=== PATIENT | male | born 1970 | race African-American/Black ===

== ENCOUNTER 2023-01-24 18:54 | Inpatient (IN) | payer OTHER, SELFPAY ==
[2023-01-24] VITALS (26 sets, daily range): BP systolic 133–182; BP diastolic 97–118; PULSE 88–109; RESP 8–31; TEMP 36.6; O2SAT 85–100; BMI 31.5
--- NOTE | 2023-01-24 19:55 | XRR_ITS ---
PROCEDURE INFORMATION: Exam: XR Chest Exam date and time: 01/24/2023 8:19 PM Age: 53 years old Clinical indication: Pain; Chest pressure; Additional info: Cp TECHNIQUE: Imaging protocol: Radiologic exam of the chest. Views: 1 view. COMPARISON: No relevant prior studies available. FINDINGS: Lungs: Unremarkable. No consolidation. Pleural spaces: Unremarkable. No pleural effusion. No pneumothorax. Heart/Mediastinum: Cardiomegaly Bones/joints: Unremarkable. XR/XR chest 1V portable [id number] IMPRESSION: 1. Negative for infiltrate. 2. Cardiomegaly
--- NOTE | 2023-01-24 19:56 | ECG_ITS ---
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 Measurements Intervals [place] Rate: 111 P: 94 MS: 171 QRS: -1 QRSD: 92 T: 169 QT: 326 QTc: 444 Interpretive Statements SINUS TACHYCARDIA POSSIBLE LEFT ATRIAL ENLARGEMENT [-0.1mV P-WAVE IN V1/V2] INCOMPLETE RIGHT BUNDLE BRANCH BLOCK [90+ ms QRS DURATION, TERMINAL R IN V1/V2, 40+ ms S IN I/aVL/V4/V5/V6] POSSIBLE ANTERIOR MYOCARDIAL INFARCTION , OF INDETERMINATE AGE [30 ms Q WAVE IN V3/V4, OR R < 0.2 mV IN V4] MODERATE T-WAVE ABNORMALITY, CONSIDER LATERAL ISCHEMIA [-0.1+ mV T-WAVE IN I/aVL/V5/V6] No previous ECG available for comparison Electronically Signed On 01-24-2023 21:36:05 CDT by Yuridia Walden M.D. [email or web address]
[2023-01-24] MEDS: lidocaine 2% viscous 15 ML, aluminum-mag hydrox-simethicon 30 ML, sucralfate oral liq 1 GM PO (20:05)
[2023-01-24] MEDS: nitroglycerin 0.4 mg sublingual Tablet SUBLINGUAL (20:07)
--- NOTE | 2023-01-24 20:08 | ED_ITS ---
HPI - General Adult General: Chief complaint: Airway/Esophagus Foreign Body Stated complaint: think food is stuck Time Seen by Provider: 01/24/23 19:55 Source: patient Mode of arrival: ambulatory Limitations: no limitations History of Present Illness: 53-year-old male states he is eating chicken a couple hours ago he states he felt like he got a piece stuck states he came sick he drinks Pepsi states like it is passed peacefully he is having esophageal spasms states having severe spasm-like pain in the center of his chest he has felt nauseous rates his pain a 6 out of 10 he is diaphoretic he denies any diarrhea denies any fevers denies any shortness of breath. Associated symptoms: Reports chest pain; Deny dyspnea, headache(s) or rash Review of Systems Const: Denies: fever(s), chills, body aches or change in appetite Eyes: Denies: blurry vision or eye discomfort ENMT: Denies: throat pain or dental pain Card: Reports: chest pain Resp: Denies: dyspnea GI: Reports: abdominal pain and heartburn : Denies: dysuria Musc: Denies: neck pain or back pain Skin/Breast: Denies: rash Neuro: Denies: headache(s) Psych: Denies: depression Rinku/Lymph: Denies: easy bruising All/Imm: Denies: urticaria PFSH ED PFSH: Medical History (Updated 01/24/23 @ 22:04 by Mehrdad Caicedo MD) Hypertension Social History (Updated 01/24/23 @ 20:08 by Mehrdad Caicedo MD) Substance/Drug Use: never Physical Exam Const: COMMON NORMALS: patient oriented x3 HENMT: COMMON NORMALS: normocephalic and atraumatic HEAD & SCALP: normocephalic and atraumatic Eye: COMMON NORMALS: Equal, round and reactive pupils present and EOMs intact bilaterally PUPIL: Yes Equal, round and reactive pupils present Neck/C-Spine: COMMON NORMALS: full ROM and supple Chest: COMMONS NORMALS: normal inspection of the chest and normal palpation of entire chest wall Resp: COMMON NORMALS: normal respiratory effort, No retractions, No use of accessory muscles and clear to auscultation bilaterally AUSCULTATION: clear to auscultation bilaterally Cardio: COMMON NORMALS: regular rate, regular rhythm and No murmurs present (Cardio) RATE: regular rate RHYTHM: regular rhythm GI: COMMON NORMALS: Normal to inspection, nondistended, normoactive bowel sounds present, Soft to palpation, non-tender and no masses PALPATION: Yes Soft to palpation Extremity: COMMON NORMALS: normal to inspection and full ROM Neuro: COMMON NORMALS: patient oriented x3, moves all extremities and no focal motor deficits Psych: COMMON NORMALS: mental status grossly normal, Normal thought process present and cooperative THOUGHT PROCESS: Normal thought process present Skin: COMMON NORMALS: no rashes or lesions noted and no wounds GENERAL SKIN EXAM: no rashes or lesions noted Course Reevaluation(s): Reevaluation #1: Patient's pain here has improved with GI cocktail he still is having some pain I did get a repeat EKG as he was diaphoretic having chest pain he does have some slight elevation in V1 and V2 I have sent his original and repeat EKG to acetylene gas compressor Dr. Beavers I called him and discussed case with him patient could be having esophageal spasms as he does have a story of the food impaction this evening his pain has improved here after nitro and the GI cocktail his initial troponin is normal with these EKG changes plan will reassess in 15 minutes and get another EKG at that time. Time: 20:35 Vital Signs: Vital signs: Vital Signs Temperature 97.8 F 01/24/23 19:01 Pulse Rate 95 01/24/23 21:25 Respiratory Rate 24 H 01/24/23 21:25 Blood Pressure 161/118 01/24/23 21:15 Pulse Oximetry 95 01/24/23 21:25 Oxygen Delivery Me thod 01/24/23 19:01 [facility] - General Adult Medical Decision Making Patient presents here with chest pain also history of an esophageal food impaction but he is able to swallow here without any difficulties he did have some evolving EKG changes on his 3 EKGs continue to have pain I spoke to card iologist who made decision to go ahead and take patient to the Evaporator Repairer for his unstable angina his initial troponin here is normal his pain still could be caused by some esophageal spasms as well. Most concerning would be cardiac with his EKG findings. I also spoke to the hospitalist with plan if patient does have a negative cath to be monitored and is still has symptoms he likely needs either a CAT scan barium study or an EGD Lab Data 01/24/23 20:08 01/24/23 20:08 Radiology Impressions Chest X-Ray 01/24/23 19:55 IMPRESSION: 1. Negative for infiltrate. 2. Cardiomegaly Laboratory Results WBC 14.7 10^3/uL (4.0-10.0) H 01/24/23 20:08 RBC 5.41 10^6/uL (4.1-5.3) H 01/24/23 20:08 Hgb 14.9 g/dL (11.7-16.6) 01/24/23 20:08 Hct 47.8 % (42.0-52.0) 01/24/23 20:08 MCV 88.4 fl (80-94) 01/24/23 20:08 MCH 27.5 pg (28.0-34.0) L 01/24/23 20:08 MCHC 31.2 g/dL (30.0-36.0) 01/24/23 20:08 RDW 12.0 % (12.1-15.1) L 01/24/23 20:08 Plt Count 254 10^3/cmm (130-400) 01/24/23 20:08 MPV 10.1 fL (7.4-10.4) 01/24/23 20:08 Neut % (Auto) 81.7 % 01/24/23 20:08 Lymph % (Auto) 13.1 % 01/24/23 20:08 [place] % (Auto) 4.3 % 01/24/23 20:08 Eos % (Auto) 0.4 % 01/24/23 20:08 Baso % (Auto) 0.3 % 01/24/23 20:08 Neut # (Auto) 12.01 10^3/uL (1.8-7.7) H 01/24/23 20:08 Lymph # (Auto) 1.9 10^3/uL (0.8-4.8) 01/24/23 20:08 [place] # (Auto) 0.6 10^3/uL (0.2-0.9) 01/24/23 20:08 Eos # (Auto) 0.1 10^3/uL (0.0-0.8) 01/24/23 20:08 Baso # (Auto) 0.0 10^3/uL (0.0-0.1) 01/24/23 20:08 Nucleated RBC % (auto) 0 % 01/24/23 20:08 Nucleated RBCs # 0.0 /100WBC 01/24/23 20:08 PT 13.20 SECONDS (12.1-14.9) 01/24/23 20:08 INR 0.97 (0.8-1.2) 01/24/23 20:08 Sodium 137 mmol/L (136-145) 01/24/23 20:08 Potassium 3.4 mmol/L (3.5-5.1) L 01/24/23 20:08 Chloride 100 mmol/L (98-107) 01/24/23 20:08 Carbon Dioxide 22 mmol/L (22-29) 01/24/23 20:08 Anion Gap 18.4 (5-19) 01/24/23 20:08 BUN 15 mg/dL (6-20) 01/24/23 20:08 Creatinine 1.5 mg/dL (0.7-1.2) H 01/24/23 20:08 GFR Calculation 59.7 mL/min (90-130) L 01/24/23 20:08 Glucose 131 mg/dL (65-115) H 01/24/23 20:08 Calculated Osmolality 287 mOsm/kg (285-295) 01/24/23 20:08 Calcium 9.6 mg/dL (8.5-10.5) 01/24/23 20:08 Total Bilirubin 0.5 mg/dL (0.15-1.2) 01/24/23 20:08 AST 25 U/L (0-40) 01/24/23 20:08 ALT 30 U/L (0-41) 01/24/23 20:08 Alkaline Phosphatase 95 U/L (40-130) 01/24/23 20:08 Troponin T Baseline 11 ng/L (0-15) 01/24/23 20:08 Total Protein 7.6 g/dL (6.6-8.7) 01/24/23 20:08 Albumin 4.4 g/dL (3.5-5.2) 01/24/23 20:08 Globulin 3.2 g/dL (1.3-4.6) 01/24/23 20:08 Lipase 25 U/L (13-60) 01/24/23 20:08 Discharge Plan Discharge Patient Disposition: Home Clinical Impression: Unstable angina, Dysphagia Coding Level of Care Code ED 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
[2023-01-24] MEDS: ondansetron 2 mg/ML SDV 2 mL 4 MG IVP (20:10)
[2023-01-24] MEDS: morphine 4 mg/mL SDV 1 mL IVP (20:10)
--- NOTE | 2023-01-24 20:13 | PC.NURSE ---
Pt on continuous bedside cardiac monitoring.
[2023-01-24 20:20] LABS: Basophils % 0.3 %; Eosinophils # 0.1 10^3/uL (0.0-0.8); Eosinophils % 0.4 %; Hematocrit 47.8 % (42.0-52.0); Hemoglobin 14.9 g/dL (11.7-16.6); Lymphocytes # 1.9 10^3/uL (0.8-4.8); Lymphocytes % 13.1 %; Mean Corpuscular HGB Conc 31.2 g/dL (30.0-36.0); Mean Corpuscular Hemoglobin 27.5 pg (28.0-34.0); Mean Corpuscular Volume 88.4 fl (80-94); Mean Platelet Volume 10.1 fL (7.4-10.4); Monocytes # 0.6 10^3/uL (0.2-0.9); Monocytes % 4.3 %; Neutrophils # 12.01 10^3/uL (1.8-7.7); Neutrophils % 81.7 %; Nucleated Red Blood Cells % 0 %; Platelet Count 254 10^3/cmm (130-400); Red Blood Count 5.41 10^6/uL (4.1-5.3); White Blood Count 14.7 10^3/uL (4.0-10.0)
[2023-01-24 20:33] LABS: INR 0.97 (0.8-1.2)
[2023-01-24 20:36] LABS: Troponin(5th) Baseline 11 ng/L (0-15)
[2023-01-24 20:37] LABS: Alanine Aminotransferase 30 U/L (0-41); Albumin Level 4.4 g/dL (3.5-5.2); Alkaline Phosphatase 95 U/L (40-130); Anion Gap 18.4 (5-19); Aspartate Amino Transferase 25 U/L (0-40); Blood Urea Nitrogen 15 mg/dL (6-20); Calcium 9.6 mg/dL (8.5-10.5); Carbon Dioxide 22 mmol/L (22-29); Chloride 100 mmol/L (98-107); Globulin 3.2 g/dL (1.3-4.6); Glomerular Filtration Rate 59.7 mL/min (90-130); Glucose 131 mg/dL (65-115); Lipase 25 U/L (13-60); Osmolality Calculated 287 mOsm/kg (285-295); Potassium 3.4 mmol/L (3.5-5.1); Sodium 137 mmol/L (136-145); Total Bilirubin 0.5 mg/dL (0.15-1.2); Total Protein 7.6 g/dL (6.6-8.7)
--- NOTE | 2023-01-24 20:37 | PC.NURSE ---
Pt appears to be relieved after GI cocktail, but pain resurfaces after swallowing. Dr page.
[2023-01-24] MEDS: aspirin 81 mg Chew Tablet 324 MG PO (20:42)
[2023-01-24] MEDS: HYDROmorphone 1 mg/mL INJ 1 mL IVP (20:54)
[2023-01-24] MEDS: clopidogrel 300 mg Tablet 600 MG PO (21:13)
[2023-01-24] MEDS: heparin 5,000 unit/mL INJ 1 mL 4000 UNIT IVP (21:15)
--- NOTE | 2023-01-24 21:19 | XACV_ITS ---
Exam Room: ED.ROOM15 Ht: 178 cm Wt: 95 kg BSA: 2.19 m2 Gender: Male : 1970 Exam Priority: Routine Procedure(s): Procedure Description: Diagnostic procedure Procedure Description: Left Heart Catheterization Procedure Description: Coronary Angiography Diagnostic Cath Status: Emergency Diagnostic Findings * INDICATION: 53 year old male with past medical history of hypertension has presented to hospital with 2 to 3 hours of severe substernal chest pain. According to patient he noticed chest pain after eating. He felt there may be food impaction. However he was diaphoretic. EKG had dynamic changes in leads V1 and V2 and ST-T wave changes on subsequent EKGs performed in the ER in leads V5 and V6. Given severe substernal chest pain and dynamic EKG changes, decision was made to perform coronary angiogram. * No significant disease noted in the Left Main, Left Anterior Descending, Right, or Circumflex coronary arteries. * Coronary angiography shows right dominance. Conclusions 1. No significant disease noted in the Left Main, Left Anterior Descending, Right, or Circumflex coronary arteries. Recommendations * ACS ruled out as a cause of severe chest pain. Will need further work up for underlying chest pain pathology. Interventional RX Recommendation: medical therapy and/or counseling Diagnostic RX Recommendation: medical therapy and/or counseling Pressures Phase:Rest AO : 178 / 127 ( 145 ) @ 5:10:17 PM 196 / 129 ( 154 ) @ 5:10:17 PM 157 / 118 ( 136 ) @ 5:10:17 PM LV : 196 / 15 / 42 @ 5:10:17 PM 182 / 8 / 35 @ 5:10:17 PM Valves Phase:DefaultPhase AV : 2.0 @ 10:10:17 PM 2.0 @ 10:10:17 PM AV Mean Gradient: 7.0 @ 10:10:17 PM Clinical Evaluation EBL: 5mL-10mL Procedural Details Pre-Procedure Time Out. Identified patient by full name and date of as verbalized by the patient/guarantor. Does the consent match the physician's order: N/A Emergent; Informed Consent not obtained due to time critical life threat. Accurate & Complete Informed Consent: N/A Emergent; Informed Consent not obtained due to time critical life threat. Inpatient/Outpatient History & Physical on Chart: N/A Emergent; Informed Consent not obtained due to time critical life threat. If H&P is completed, is and addenduem needed: N/A Emergent; Informed Consent not obtained due to time critical life threat; If yes, is the addendum complete: N/A Emergent; Informed Consent not obtained due to time critical life threat. Visualize and Verify Site with Patient/Guarantor: N/A. Relevant Radiology Images available: N/A Emergent; Informed Consent not obtained due to time critical life threat. Pre-op teaching completed and patient verbalized understanding. The risks, benefits, and alternatives of sedation and/or procedure were discussed by physician. The patient agrees to continue. Procedure started. [facility] Clinical Fraility Score: 3: Managing Well. Manager Port Indications: ACS <= 24 hours. Chest Pain Symptom Assessment: Typical Angina Symptoms. Cardiovascular Instability: Yes, if yes, Persistant Ischemic Symptoms. Correct patient, site and procedure confirmed by cath team. Current diagnosis: STEMI. PERRLA. Strong, equal hand chicken and fish cleaner bilaterally. Lungs clear x 5 lobes. IV Site on Arrival: 20 gauge in the right anticubital. IV Fluids: 0.9% NaCl at KVO. 0 mL infused prior to label folder. Oxygen started at 3liters/min via nasal canula. right groin was prepped with chloroprep then draped in the usual sterile fashion. right radial was prepped with chloroprep then draped in the usual sterile fashion. Physician notified. Baseline sample Acquired. HR: 101 BPM. Equipment: 6F - Radial. Cardiac Cath Pack. ACIST Manifold Kit Model BT 2000. Heparinized Saline (2 units/mL), 1000 mL bag. Physician arrived. Physician scrubbed in. Immediate Pre-Procedure Time Out. Correct Patient: N/A Emergent; Informed Consent not obtained due to time critical life threat; Correct Procedure: N/A Emergent; Informed Consent not obtained due to time critical life threat; Correct Site: N/A Emergent; Informed Consent not obtained due to time critical life threat; Correct Patient Position: N/A Emergent; Informed Consent not obtained due to time critical life threat; Correct Supplies: N/A Emergent; Informed Consent not obtained due to time critical life threat; Dried Flammable Prep: N/A Emergent; Informed Consent not obtained due to time critical life threat; Blood Products Available: N/A Emergent; Informed Consent not obtained due to time critical life threat;. Lidocaine 1% infiltrated to the right radial. Arterial access obtained using ultrasound guidance. A 5 ivorian Massimo catheter in over the exchange J wire. Catheter removed over the exchange J wire. Hand injection performed of the right upper extremity through the sheath. A 5 ivorian Massimo catheter in over the exchange glidewire to the LV. Exchange glidewire out. EDP Sample taken: LV 196/15,42; HR: 114 BPM; SpO2: 97%. Pullback taken: LV 182/8,35; AO 178/127(145); Mean: 7mmHg, Peak to Peak: 2mmHg, SEP: 7sec/min; HR: 116 BPM; SpO2: 98%. Catheter redirected to the RCA. Multiple views taken of right coronary artery. Catheter redirected to the LCA. Multiple views taken of left coronary artery. Catheter removed over the exchange J wire. Dr. Garnett scrubbed out. A TR Band was successful obtaining hemostatsis at the Right Radial artery insertion site. TR band placed. Hemostasis obtained. Post Procedure: right radial pulse 3+. PERRLA. Strong, equal hand chicken and fish cleaner bilaterally. No VTE prophylaxis required. Medication's Wasted: Lidocaine 1% = 2 mL. Medication's Wasted: Heparin = 1000 units. Medication's Wasted: Nitro = 49.8 mg. Total IV fluids: 21 mL. Post-op diagnosis: non obstructive CAD. Complications: none. Estimated blood loss: 5mL-10mL. Responsiveness - Normal response to verbal stimuli; alert and oriented, PERRLA. Airway - Unaffected, no intervention required; spontaneous ventilation. Circulation: W/N/L, pulses unchanged. Nausea/Vomiting: No. Procedure completed. Patient transferred by wheelchair to ICU. Vital chart was stopped. Access Site Site: Right Radial artery Sheath Size: 6 Fr Hemostasis Method: TR Band Hemostasis Success: Successful Procedure Medications Start: 9:38 PM Stop: 9:38 PM Medication: Versed Amount: 2 mg Route: I.V. Start: 9:38 PM Stop: 9:38 PM Medication: Fentanyl Amount: 25 mcg Route: I.V. Start: 9:39 PM Stop: 9:39 PM Medication: Fentanyl Amount: 25 mcg Route: I.V. Start: 9:44 PM Stop: 9:44 PM Medication: Hydralazine Amount: 10 mg Route: I.V. Start: 9:45 PM Stop: 9:45 PM Medication: Nitrogylcerin Amount: 200 mcg Route: I.A. Start: 9:46 PM Stop: 9:46 PM Medication: Versed Amount: 1 mg Route: I.V. Start: 9:46 PM Stop: 9:46 PM Medication: Fentanyl Amount: 25 mcg Route: I.V. Start: 9:53 PM Stop: 9:53 PM Medication: Lopressor (metoprolol) Amount: 5 mg Route: I.V. Start: 9:54 PM Stop: 9:54 PM Medication: Versed Amount: 1 mg Route: I.V. Start: 9:55 PM Stop: 9:55 PM Medication: Fentanyl Amount: 25 mcg Route: I.V. Start: 9:55 PM Stop: 9:55 PM Medication: Hydralazine Amount: 10 mg Route: I.V. I, the attending physician, have reviewed and verified all procedure medications. Yes, all medications given per verbal order Report Signatures Finalized by Albert Garnett MD on 01/24/2023 10:21 PM
--- NOTE | 2023-01-24 21:28 | PM.CONSULT ---
Providers/Reason For Consult Consulting Physician/Specialty*: Albert Garnett MD/ Interventional cardiology Reason for Consult*: Chest pain/ dynamic EKG changes Requesting Physician: Dr Caicedo Attending Physician: Albert Garnett M.D History of Present Illness History of Present Illness Felipe Cole is a 53 year old male with past medical history of hypertension has presented to hospital with 2 to 3 hours of severe substernal chest pain. According to patient he noticed chest pain after eating. He felt there may be food impaction. However he was diaphoretic. EKG had dynamic changes in leads V1 and V2 and ST depressions on subsequent EKGs performed in the ER in leads V5 and V6. Given severe substernal chest pain and dynamic EKG changes, decision was made to perform coronary angiogram. Review of Systems Const: Denies: fever(s), chills, body aches or change in appetite Eyes: Denies: blurry vision or eye discomfort ENMT: Denies: throat pain or dental pain Card: Reports: chest pain Resp: Denies: dyspnea GI: Reports: abdominal pain and heartburn : Denies: dysuria Musc: Denies: neck pain or back pain Skin/Breast: Denies: rash Neuro: Denies: headache(s) Psych: Denies: depression Rinku/Lymph: Denies: easy bruising All/Imm: Denies: urticaria Medications/Allergies Allergies Allergy/AdvReac Type Severity Reaction Status Date / Time No Known Allergies Allergy Verified 01/24/23 19:01 Current Medications Generic Name Dose Route Start Last Admin Trade Name Freq PRN Reason Stop Dose Admin Nitroglycerin 0.4 mg 01/24/23 19:55 01/24/23 20:07 Nitroglycerin 0.4 Mg Sublingual Tablet SUBLINGUAL 0.4 mg Q5M PRN Administration CHEST PAIN PFSH Acute PFSH: Medical History Hypertension Social History Substance/Drug Use: never Vitals/I&O/Wt Last Vital Signs Temp 97.8 F 01/24/23 19:01 Pulse 95 01/24/23 21:25 Resp 24 H 01/24/23 21:25 BP 161/118 01/24/23 21:15 Pulse Ox 95 01/24/23 21:25 O2 Del Method 01/24/23 19:01 Weight last 48 hrs Weight 220 lb Physical Exam Narrative: GENERAL: Patient is alert, awake and oriented x3. [] NECK: No jugular vein distension. [] HEENT: No cyanosis. No icterus. No pallor. [] HEART: Regular S1 and S2. No murmur, rub or gallop. [] LUNGS: Clear to auscultate bilaterally. [] CENTRAL NERVOUS SYSTEM: Grossly nonfocal. [] EXTREMITIES: Lower extremities with no edema Data 01/24/23 20:08 01/24/23 20:08 A&P Assessment and plan (1) Hypertension: (2) Chest pain: (3) Dysphagia: Plan Patient has presented with severe chest pain and dynamic EKG changes. Symptoms are concerning for esophageal pathology. However given dynamic EKG changes and severe chest pain, we will proceed with coronary angiogram to rule severe CAD as underlying pathology. NPO Patient received aspirin and heparin bolus If coronary arteries are normal, management per medicine team. Thank you for involving us care of this patient. We will continue to follow. Please call with questions. Consult Attestations Medical Necessity Statement: Care expected to cross 2 midnights. Coding Level of Care Code Acute Code for g Fwd Diagnoses Hypertension I10 Chest pain R07.9 Dysphagia R13.10
--- NOTE | 2023-01-24 21:56 | ECG_ITS ---
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 Measurements Intervals [place] Rate: 90 P: 73 [place]: 172 QRS: -3 QRSD: 98 T: 169 QT: 368 QTc: 451 Interpretive Statements SINUS RHYTHM WITH SINUS ARRHYTHMIA POSSIBLE LEFT ATRIAL ENLARGEMENT [-0.1mV P-WAVE IN V1/V2] INCOMPLETE RIGHT BUNDLE BRANCH BLOCK [90+ ms QRS DURATION, TERMINAL R IN V1/V2, 40+ ms S IN I/aVL/V4/V5/V6] INFERIOR MYOCARDIAL INFARCTION , PROBABLY OLD [40+ ms Q WAVE AND/OR ST/T ABNORMALITY IN II/aVF] MODERATE T-WAVE ABNORMALITY, CONSIDER LATERAL ISCHEMIA [-0.1+ mV T-WAVE IN I/aVL/V5/V6] Compared to ECG 01/24/2023 20:04:07 Sinus tachycardia no longer present.Myocardial infarct finding still present T-wave abnormality still present.Possible ischemia still present Electronically Signed On 01-24-2023 21:42:35 CDT by Yuridia Walden M.D. [email or web address]
--- NOTE | 2023-01-24 22:16 | CTR_ITS ---
PROCEDURE INFORMATION: Exam: CT Chest Without Contrast; Diagnostic Exam date and time: 01/24/2023 10:33 PM Age: 53 years old Clinical indication: Sternal or substernal pain; Additional info: Chest pain, R/O esophageal tear, retching, chest pain, clean coronary angiogram TECHNIQUE: Imaging protocol: Diagnostic computed tomography of the chest without contrast. Radiation optimization: All CT scans at this facility use at least one of these dose optimization techniques: automated exposure control; mA and/or kV adjustment per patient size (includes targeted exams where dose is matched to clinical indication); or iterative reconstruction. REPORTING DATA: Count of CT and Cardiac NM exams in prior 12 months: This patient has received [address] and 0 known cardiac nuclear medicine studies in the 12 months prior to the current study. COMPARISON: CR (CHEST, ) 01/24/2023 8:19 PM RADIATION DOSE METRICS: Total DLP (mGy-cm): 808.66 FINDINGS: Lungs: Bilateral dependent atelectasis. Pleural spaces: Unremarkable. No pneumothorax. No pleural effusion. Heart: Minimal coronary artery atherosclerotic calcifications. Mediastinal space: Probable extraluminal air seen about the left aspect of the upper to mid esophagus likely reflecting an esophageal perforation. Contrast is seen in the esophageal lumen with possible extravasation outside the lumen in the midportion, best seen series 7, images 36 through 38. Lymph nodes: Unremarkable. No enlarged lymph nodes. Vasculature: Unremarkable. No aortic aneurysm. Bones/joints: Unremarkable. No acute fracture. Soft tissues: Unremarkable. CT/CT chest wo con [id number] IMPRESSION: 1. Probable extraluminal air seen about the left aspect of the upper to mid esophagus likely reflecting an esophageal perforation. Contrast is seen in the esophageal lumen with possible extravasation outside the lumen in the midportion, best seen series 7, images 36 through 38. 2. Bilateral dependent atelectasis. 3. Minimal coronary artery atherosclerotic calcifications.
--- NOTE | 2023-01-24 22:38 | CTR_ITS ---
PROCEDURE INFORMATION: Exam: CT Abdomen And Pelvis Without Contrast Exam date and time: 01/24/2023 10:38 PM Age: 53 years old Clinical indication: Pain TECHNIQUE: Imaging protocol: Computed tomography of the abdomen and pelvis without contrast. Radiation optimization: All CT scans at this facility use at least one of these dose optimization techniques: automated exposure control; mA and/or kV adjustment per patient size (includes targeted exams where dose is matched to clinical indication); or iterative reconstruction. REPORTING DATA: Count of CT and Cardiac NM exams in prior 12 months: This patient has received [address] and 0 known cardiac nuclear medicine studies in the 12 months prior to the current study. COMPARISON: CT chest wo con [id number] 01/24/2023 10:33 PM RADIATION DOSE METRICS: Total DLP (mGy-cm): 1190.23 FINDINGS: Lungs: Bilateral dependent atelectasis. Diaphragm: Small hiatal hernia. Liver: Normal. No mass. Gallbladder and bile ducts: Normal. No calcified stones. No ductal dilation. Pancreas: Normal. No ductal dilation. Spleen: Normal. No splenomegaly. Adrenal glands: Normal. No mass. Kidneys and ureters: Normal. No hydronephrosis. Stomach and bowel: Unremarkable. No obstruction. No mucosal thickening. Appendix: No evidence of appendicitis. Intraperitoneal space: Unremarkable. No free air. No significant fluid collection. Vasculature: Unremarkable. No abdominal aortic aneurysm. Lymph nodes: Unremarkable. No enlarged lymph nodes. Urinary bladder: Unremarkable as visualized. Reproductive: Unremarkable as visualized. Bones/joints: Unremarkable. No acute fracture. Soft tissues: Bilateral fat containing hernias without bowel or inflammation. CT/CT abdomen pelvis wo con [id number] IMPRESSION: 1. Negative for acute inflammatory process in the abdomen or pelvis. 2. Small hiatal hernia. 3. Bilateral fat containing hernias without bowel or inflammation. 4. Bilateral dependent atelectasis.
[2023-01-24] MEDS: diatrizoate meglumine 120 mL Sol PO (23:02)
[2023-01-24] MEDS: morphine 4 mg/mL SDV 1 mL 1 MG IVP (23:20)
[2023-01-24] MEDS: sodium chloride 0.9% 1,000 ML 125 ML IV (23:22)
--- NOTE | 2023-01-24 23:39 | PC.PHAR ---
Pharmacokinetic dosing service Date: 01/24/23 Time: 2339 Objective: Patient: Felipe Cole Floor: ICU-1 Age: 53 yo Serum creatinine: 1.5 mg/dL Height: 70.0 Inches Weight (kg): 99.79 Diagnosis: Relevant medical/social history: Cultures and sensitivities: Other labs: Assessment: IBW (kg): 73.00 Dosing wt(kg): 99.79 Estimated Creatinine clearance (ml/min): 60.2 CRCL method: Cockcroft and Gault using ibw(default). Drug selected: Vancomycin Loading dose (mg): 0 Vd (liters): 89.8 (factor used: 0.9 L/kg) Octaviano (hr-1): 0.054 Half life (hrs): 12.84 Recommended dose: 1500 mg Interval: 12 hrs Infusion time (hrs): 1.5 Predicted peak (mcg/mL): 33.6 Predicted trough (mcg/mL): 19.06 Total body weight is being used for vancomycin dosing. Renal function is stable [ ] /unstable [ ] Recommendations: Give Vancomycin 1500 mg q 12 hrs with an expected Cpeak of 33.6 mcg/ml and an expected Ctrough of 19.06 mcg/ml Renal dosing of other antibiotics (review renal dosing of other medications and list guidelines here): Thank you for the consult, will continue to follow. Signature: Delmy Moreno [facility]
--- NOTE | 2023-01-24 23:42 | P.HP_ITS ---
Providers/Chief Complaint Admitting Physician: Albert Garnett M.D Chief Complaint: think food is stuck History of Present Illness Felipe Cole is a 53 year old male with past medical history of hypertension who is not on any medications at home presented to the ER today with complaint of chest pain. He was eating chicken which he felt became stuck in his throat and therefore he drank Pepsi to wash it down. He has been having chest pain since then which is intermittent comes and goes and when it does happen it is 10 out of 10 sharp intense in the middle of his chest. Denies pressure. Also complains of nausea. Had a lot of retching before he came in. Initially in the ER he was diaphoretic and had some evolving EKG changes with V1 V2 mild ST elevations and T wave inversions in lead I and V6. Initial troponin was negat kristie. He was taken emergently to [facility] for coronary angiogram. He was given heparin bolus and from report it was noted that coronary angiogram did not have any significant blockages. Due to acute pain patient was unable to get a CT scan in the ER. Right after [facility] he was taken emergently to CAT scan and CT esophagogram with Gastrografin was ordered. CT abdomen was also ordered. On CT chest it shows probable extraluminal air seen about left aspect of upper to mid esophagus likely reflecting esophageal perforation. Contrast seen in esophageal lumen with possible extravasation outside lumen in the midportion best seen series 7, images 36-38. Bilateral dependent atelectasis, minimal coronary artery atherosclerotic calcification seen. CT abdomen shows negative for acute inflammatory process in abdomen or pelvis, small hiatal hernia, bilateral fat- containing hernias without bowel or inflammation, bilateral dependent atelectasis. Seen in ICU room 2 at this point patient complains of pain that is intermittent. He has been given Versed from [facility] procedure and therefore is slig htly drowsy however appropriate and able to answer questions and follow commands. Able to provide a history at this time. Medications/Allergies Allergies Allergy/AdvReac Type Severity Reaction Status Date / Time No Known Allergies Allergy Verified 01/24/23 19:01 PFSH Acute PFSH: Medical History Hypertension Social History Substance/Drug Use: never Vitals/I&O/Wt Last Vital Signs Temp 97.8 F 01/24/23 22:48 Pulse 102 H 01/24/23 23:31 Resp 17 01/24/23 23:31 BP 182/111 01/24/23 23:30 Pulse Ox 94 01/24/23 23:31 O2 Del Method 01/24/23 23:31 Weight last 48 hrs Weight 99.79 kg Physical Exam Narrative: General: Alert oriented x3, patient seen laying in bed appearing comfortable at this time. HEENT: Normocephalic, atraumatic, EOMI, breathing comfortably no acute respiratory distress. Cardio: Regular rate rhythm, normal S1-S2, chest pain reproducible with palpation. Respiratory: Clear to auscultation bilaterally no wheezes or rhonchi at this time. GI: Abdomen soft, nontender, bowel sounds + Extremities: No edema noted. Data 01/24/23 20:08 01/24/23 20:08 A&P Assessment and plan (1) Chest pain: (2) Hypertension: (3) Esophageal perforation: Plan #Chest pain secondary to esophageal perforation #Negative coronary angiogram #History of hypertension, not on any home medications - 1. Probable extraluminal air seen about the left aspect of the upper to mid esophagus likely reflecting an esophageal perforation. Contrast is seen in the esophageal lumen with possible extravasation outside the lumen in the midportion, best seen series 7, images 36 through 38. 2. Bilateral dependent atelectasis. 3. Minimal coronary artery atherosclerotic calcifications. -Discussed case with CT surgery Dr. Rubalcava and general surgery Dr. Bustillos who have both advised to transfer patient to tertiary [facility] for esophageal repair. ? Discussed at length with the ER doctor as well. ? Discussed with light rail train operator after [facility] procedure ? Currently patient is vitally stable. ? N.p.o. status ? Started on vancomycin and Zosyn ? Monitor vitals closely ? Morphine 2 mg every 4 hours as needed. We will increase dose as required -Check repeat labs CBC, CMP, procalcitonin -Zofran for nausea - hydralazine 5 iv x1 ? We will transfer patient to higher level of care once he is accepted. In case of transfer this document should serve as transfer summary as well. Full code Heparin SQ twice daily for DVT prophylaxis. Patient already given a bolus of heparin during [facility] procedure. However hold off on giving any more heparin tonight. Attestations Medical Necessity Statement*: Admit to ICU for further management. Coding Level of Care Code Critical Care >/= 30 minutes Critical care time (in minutes): 60 The high probability of a clinically significant, sudden or life threatening deterioration, as referenced in this documentation, required my full and direct attention, intervention and personal management. The critical care time shown is in addition to time spent performing any reported separately billable procedures and includes the following: [x] Data and vital sign review and interpretation [x ] Patient assessment, examination and intervention [x] Medication orders and management [x] Patient/Family updates as able [x] Care Coordination and Documentation. Other Coding Information Focused coding review requested Diagnoses Chest pain R07.9 Hypertension I10 Esophageal perforation K22.3
[2023-01-24] MEDS: morphine 4 mg/mL SDV 1 mL 2 MG IVP (23:46)
[2023-01-24] MEDS: hyDRALAzine 20 mg/mL INJ 1 mL 5 MG IVP (23:46)
[2023-01-24 23:49] LABS: Troponin 5 2HR 8.67 ng/L (0-15)
[2023-01-24 23:50] LABS: Basophils % 0.2 %; Hematocrit 44.5 % (42.0-52.0); Hemoglobin 13.9 g/dL (11.7-16.6); Lymphocytes % 6.1 %; Mean Corpuscular HGB Conc 31.2 g/dL (30.0-36.0); Mean Corpuscular Hemoglobin 27.4 pg (28.0-34.0); Mean Corpuscular Volume 87.8 fl (80-94); Monocytes # 0.8 10^3/uL (0.2-0.9); Monocytes % 4.6 %; Neutrophils # 15.08 10^3/uL (1.8-7.7); Neutrophils % 88.6 %; Nucleated Red Blood Cells % 0 %; Platelet Count 240 10^3/cmm (130-400); Red Blood Count 5.07 10^6/uL (4.1-5.3); Red Cell Distribution Width 11.9 % (12.1-15.1)
[2023-01-24 23:52] LABS: Alanine Aminotransferase 28 U/L (0-41); Alkaline Phosphatase 84 U/L (40-130); Aspartate Amino Transferase 27 U/L (0-40); Blood Urea Nitrogen 16 mg/dL (6-20); Calcium 8.9 mg/dL (8.5-10.5); Carbon Dioxide 19 mmol/L (22-29); Chloride 99 mmol/L (98-107); Globulin 3.3 g/dL (1.3-4.6); Glomerular Filtration Rate 59.7 mL/min (90-130); Glucose 112 mg/dL (65-115); Osmolality Calculated 282 mOsm/kg (285-295); Sodium 135 mmol/L (136-145); Total Bilirubin 0.6 mg/dL (0.15-1.2); Total Protein 7.3 g/dL (6.6-8.7)
[2023-01-24 23:53] LABS: Anion Gap 20.5 (5-19); Potassium 3.5 mmol/L (3.5-5.1)
[2023-01-24 23:55] LABS: Troponin 5 2HR Delta -2.33 ABS# (0-10)
[2023-01-25] VITALS: BP 193/127; PULSE 112; RESP 15
[2023-01-25 00:01] VITALS: PULSE 113; RESP 15; O2SAT 94
[2023-01-25] MEDS: ondansetron 2 mg/ML SDV 2 mL 4 MG IVP ×2 (00:05→00:14)
[2023-01-25] MEDS: vancomycin 1,500 MG/300 ML PIGGYBACK 200 MG IV (00:14)
[2023-01-25 00:15] VITALS: PULSE 108; RESP 17; O2SAT 94
[2023-01-25 00:30] VITALS: PULSE 110; RESP 16; O2SAT 95
[2023-01-25 00:31] LABS: Lactate (Lactic Acid level) 4.1 mmol/L (0.5-2.2)
[2023-01-25] MEDS: HYDROmorphone 1 mg/mL INJ 1 mL IVP (00:35)
[2023-01-25 00:45] VITALS: PULSE 110; RESP 17; O2SAT 95
[2023-01-25] MEDS: sodium chloride 0.9% 1,000 ML 999 ML IV (00:45)
[2023-01-25] MEDS: metoclopramide 5 mg/mL SDV 2 mL 10 MG IVP (00:50)
[2023-01-25] MEDS: diphenhydrAMINE 50 mg/mL SDV 1mL 25 MG IVP (00:50)
[2023-01-25] MEDS: etomidate 2 mg/mL INJ SDV 10 mL 20 MG IVP (01:15)
[2023-01-25] MEDS: succinylcholine 20 mg/mL SDV 10mL 150 MG IVP (01:19)
--- NOTE | 2023-01-25 01:21 | XRR_ITS ---
PROCEDURE INFORMATION: Exam: XR Chest Exam date and time: 01/25/2023 1:24 AM Age: 53 years old Clinical indication: Device placement; Ett placement (vent status); Patient HX: Esophageal perforation; Additional info: Intubation placement TECHNIQUE: Imaging protocol: Radiologic exam of the chest. Views: 1 view. COMPARISON: CT chest con [id number] 01/24/2023 10:33 PM FINDINGS: Tubes, catheters and devices: Endotracheal tube tip 17 mm above the sanjiv. Lungs: Right mid lung subsegmental atelectasis versus infiltrate. Pleural spaces: Unremarkable. No pleural effusion. No pneumothorax. Heart/Mediastinum: Cardiomegaly. Bones/joints: Unremarkable. XR/XR chest 1V portable [id number] IMPRESSION: 1. Endotracheal tube tip 17 mm above the sanjiv. 2. Cardiomegaly. 3. Right mid lung subsegmental atelectasis versus infiltrate.
[2023-01-25] MEDS: ketamine 100 mg/mL Inj 5 mL 150 MG IVP (01:22)
--- NOTE | 2023-01-25 01:27 | W.ED.GENADLT ---
HPI - General Adult General: Chief complaint: Airway/Esophagus Foreign Body Stated complaint: think food is stuck Time Seen by Provider: 01/24/23 19:55 Source: patient Mode of arrival: ambulatory Limitations: no limitations History of Present Illness: . [facility] ED PFSH: Medical History Hypertension Social History Substance/Drug Use: never Procedures Intubation Time out performed: Yes sedative: Etomidate Mg Given: 20 paralytic: Succinylcholine Mg Given: 150 Laryngoscope: Eli ET Tube Size: 8 ET Tube Uncuffed: No Tube Secured Depth (cm): 26 Tube Secured Location: lips Tube Placement Confirmation: visualized tube passing through cords, equal breath sounds bilaterally, no breath sounds over epigastrium and confirmation by capnometry Patient Tolerated Procedure: well Intubation Complications: none Course Vital Signs: Vital signs: Vital Signs Temperature 97.8 F 01/24/23 22:48 Pulse Rate 110 H 01/25/23 00:45 Respiratory Rate 17 01/25/23 00:45 Blood Pressure 193/127 01/25/23 00:00 Pulse Oximetry 95 01/25/23 00:45 Oxygen Delivery Me thod 01/25/23 00:45 MDM - General Adult Medical Decision Making Patient is being transferred for an esophageal rupture upon getting loaded onto the helicopter he became combative as he is claustrophobic patient when he came to the ER still combative and was brought back in the ER to be intubated for the flight patient given succinylcholine along with etomidate for the intubation no complications during intubation chest x-ray shows good placement of the tube pulse ox currently is 95% he is quite hypertensive we will give him a dose of labetalol along with ketamine. He is stable for transfer currently and is getting transferred by air Lab Data 01/24/23 23:45 01/24/23 22:[address] 01/24/23 22:16 IMPRESSION: 1. Probable extraluminal air seen about the left aspect of the upper to mid esophagus likely reflecting an esophageal perforation. Contrast is seen in the esophageal lumen with possible extravasation outside the lumen in the midportion, best seen series 7, images 36 through 38. 2. Bilateral dependent atelectasis. 3. Minimal coronary artery atherosclerotic calcifications. ADDENDUM: 01/24/23 [id number] THIS REPORT CONTAINS FINDINGS THAT MAY BE CRITICAL TO PATIENT CARE. The findings were verbally communicated via telephone conference with Dr. Lopez at 11:23 PM CDT on 01/24/2023. The findings were acknowledged and understood. Abdomen/Pelvis CT 01/24/23 22:38 IMPRESSION: 1. Negative for acute inflammatory process in the abdomen or pelvis. 2. Small hiatal hernia. 3. Bilateral fat containing hernias without bowel or inflammation. 4. Bilateral dependent atelectasis. Laboratory Results WBC 14.7 10^3/uL (4.0-10.0) H 01/24/23 20:08 RBC 5.41 10^6/uL (4.1-5.3) H 01/24/23 20:08 Hgb 14.9 g/dL (11.7-16.6) 01/24/23 20:08 Hct 47.8 % (42.0-52.0) 01/24/23 20:08 MCV 88.4 fl (80-94) 01/24/23 20:08 MCH 27.5 pg (28.0-34.0) L 01/24/23 20:08 MCHC 31.2 g/dL (30.0-36.0) 01/24/23 20:08 RDW 12.0 % (12.1-15.1) L 01/24/23 20:08 Plt Count 254 10^3/cmm (130-400) 01/24/23 20:08 MPV 10.1 fL (7.4-10.4) 01/24/23 20:08 Neut % (Auto) 81.7 % 01/24/23 20:08 Lymph % (Auto) 13.1 % 01/24/23 20:08 Evans % (Auto) 4.3 % 01/24/23 20:08 Eos % (Auto) 0.4 % 01/24/23 20:08 Baso % (Auto) 0.3 % 01/24/23 20:08 Neut # (Auto) 12.01 10^3/uL (1.8-7.7) H 01/24/23 20:08 Lymph # (Auto) 1.9 10^3/uL (0.8-4.8) 01/24/23 20:08 Evans # (Auto) 0.6 10^3/uL (0.2-0.9) 01/24/23 20:08 Eos # (Auto) 0.1 10^3/uL (0.0-0.8) 01/24/23 20:08 Baso # (Auto) 0.0 10^3/uL (0.0-0.1) 01/24/23 20:08 Nucleated RBC % (auto) 0 % 01/24/23 20:08 Nucleated RBCs # 0.0 /100WBC 01/24/23 20:08 PT 13.20 SECONDS (12.1-14.9) 01/24/23 20:08 INR 0.97 (0.8-1.2) 01/24/23 20:08 Sodium 137 mmol/L (136-145) 01/24/23 20:08 Potassium 3.4 mmol/L (3.5-5.1) L 01/24/23 20:08 Chloride 100 mmol/L (98-107) 01/24/23 20:08 Carbon Dioxide 22 mmol/L (22-29) 01/24/23 20:08 Anion Gap 18.4 (5-19) 01/24/23 20:08 BUN 15 mg/dL (6-20) 01/24/23 20:08 Creatinine 1.5 mg/dL (0.7-1.2) H 01/24/23 20:08 GFR Calculation 59.7 mL/min (90-130) L 01/24/23 20:08 Glucose 131 mg/dL (65-115) H 01/24/23 20:08 Calculated Osmolality 287 mOsm/kg (285-295) 01/24/23 20:08 Lactate 4.1 mmol/L (0.5-2.2) H* 01/24/23 20:08 Calcium 9.6 mg/dL (8.5-10.5) 01/24/23 20:08 Total Bilirubin 0.5 mg/dL (0.15-1.2) 01/24/23 20:08 AST 25 U/L (0-40) 01/24/23 20:08 ALT 30 U/L (0-41) 01/24/23 20:08 Alkaline Phosphatase 95 U/L (40-130) 01/24/23 20:08 Troponin T Baseline 11 ng/L (0-15) 01/24/23 20:08 Total Protein 7.6 g/dL (6.6-8.7) 01/24/23 20:08 Albumin 4.4 g/dL (3.5-5.2) 01/24/23 20:08 Globulin 3.2 g/dL (1.3-4.6) 01/24/23 20:08 Lipase 25 U/L (13-60) 01/24/23 20:08 Discharge Plan Discharge Patient Disposition: Home Clinical Impression: Unstable angina, Dysphagia Coding Level of Care Code ED Owner/Operator for Greg Barrera
[2023-01-25] MEDS: labetalol 5 mg/mL SDV 20mL 20 MG IVP (01:30)
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
== END 2023-01-25 00:45 | disposition short-term general hospital (02) | DRG 369 ==
LOC: ER 19:56 → CCL 21:27 → ICU 22:15
PROVIDERS: Admitting Provider Internal Medicine; Emergency Provider Emergency Medicine; Visit Provider Internal Medicine
PROC: 4A023N7 Measurement of Cardiac Sampling and Pressure, Left Heart, Percutaneous Approach (ICD-10-PCS; principal; 2023-01-24 21:00)
DX: K22.3 Perforation of esophagus (principal); J98.11 Atelectasis; I10 Essential (primary) hypertension; R13.10 Dysphagia, unspecified; K44.9 Diaphragmatic hernia without obstruction or gangrene; R94.31 Abnormal electrocardiogram [ECG] [EKG]
CPT/HCPCS: 31500; 71045; 71250; 74176; 80053; 83605; 83690; 84484; 85025; 85610; 93005; 93458; 94799; 96365; 96374; 96375; 99152; 99153; 99285; C1769; C1887; C1894; J0330; J0360; J1170; J1200; J1644; J2250; J2270; J2405; J2704; J2765; J3010; J3370; J3490; J7030; Q9963; Q9967